=== PATIENT | female | born 1975 | race Caucasian/White ===

== ENCOUNTER → 2021-02-04 | Outpatient (CLI) | payer OTHER ==
--- NOTE | 2021-02-04 08:29 | US ---
EXAMINATION TYPE: US pelvic complete DATE OF EXAM: 02/04/2021 COMPARISON: NONE CLINICAL HISTORY: R10.2 pelvic and perineal pain. TECHNIQUE: Transvaginal (TV) and Transabdominal (TA) . Transabdominal sonographic images of the pel vis were acquired. Transvaginal sonographic images were medically necessary to better assess the fol lowing anatomy: Endometrium EXAM MEASUREMENTS: Uterus: 10.4x6.7x5.1 cm Endometrial Stripe: 0.8 cm Right Ovary: 2.5x2.0x1.7 cm Left Ovary: 1.9x1.6x2.2 cm Nabothian cysts noted in CX 1. Uterus: Anteverted wnl 2. Endometrium: wnl 3. Right Ovary: wnl 4. Left Ovary: Small hemorrhagic cyst 1.2x1.3x1.0cm 5. Bilateral Adnexa: wnl 6. Posterior cul-de-sac: wnl IMPRESSION: Hemorrhagic cyst left ovary.
== END | disposition home or self-care (01) ==
LOC: RADUSWWP 07:16
PROVIDERS: ATTEND Family Medicine
DX: N83.202 Unspecified ovarian cyst, left side (principal)
CPT/HCPCS: 76830; 76856